=== PATIENT | male | born 1985 | race Two or more races ===

== ENCOUNTER 2023-12-15 17:15 | Emergency (ER) | payer BC ==
[~2023-12-15] VITALS: Ht 165.1 cm; Wt 68.0 kg
[2023-12-15] MEDS ORDERED: SERTRALINE20 MG/1 ML (17:37)
== END 2023-12-15 20:39 | disposition home or self-care (01) ==
LOC: ER 17:16
DX: R07.81 Pleurodynia (principal); W18.39XA Other fall on same level, initial encounter; Y93.89 Activity, other specified; Y92.832 Beach as the place of occurrence of the external cause